=== PATIENT | female | born 1955 | race African-American/Black ===

== ENCOUNTER 2019-08-04 16:36 | Emergency (ER) | payer OTHER ==
[~2019-08-04] VITALS: Ht 152.4 cm; Wt 65.0 kg
[2019-08-04] MEDS ORDERED: SODIUM CHLORIDE FLUSH 10ML SYR IVF ONE (17:00)
[2019-08-04] MEDS ORDERED: ONDANSETRON 2MG/ML, 2ML IVPush ONE (17:00)
[2019-08-04] MEDS ORDERED: FENTANYL PF 100 MCG/2ML IV ONE (17:00)
[2019-08-04] MEDS ORDERED: DIPHENHYDRAMINE 50 MG/ML, 1ML IVPush ONE (17:00)
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
[2019-08-04] MEDS ORDERED: DIPHENHYDRAMINE 50 MG/ML, 1ML ONE (17:18)
[2019-08-04] MEDS ORDERED: ONDANSETRON 2MG/ML, 2ML ONE (17:18)
[2019-08-04] MEDS ORDERED: FENTANYL PF 100 MCG/2ML ONE (17:19)
[2019-08-04 18:30] LABS: BASOPHILS # (AUTO) 0.02 x10^3/uL (0-0.1); BASOPHILS % (AUTO) 0 % (0-1); EOSINOPHILS # (AUTO) 0.18 x10^3/uL (0-0.4); EOSINOPHILS % (AUTO) 3 % (1-7); LYMPHOCYTES # (AUTO) 1.86 x10^3/uL (1-3.4); LYMPHOCYTES % (AUTO) 27 % (22-44); MD NO; MEAN CORPUSCULAR HEMOGLOBIN 30.4 pg (27.0-34.8); MEAN CORPUSCULAR HGB CONC 33.8 g/dL (32.4-35.8); MEAN CORPUSCULAR VOLUME 90.1 fL (80-100); MEAN PLATELET VOLUME 7.9 fL (7.4-10.4); MONOCYTES # (AUTO) 0.37 x10^3/uL (0.2-0.8); MONOCYTES % (AUTO) 5 % (2-9); NEUTROPHILS # (AUTO) 4.35 x10^3/uL (1.8-6.8); NEUTROPHILS % (AUTO) 64 % (42-75); PLATELET COUNT 326 x10^3/uL (130-400); RED BLOOD COUNT 3.82 x10^6/uL (3.82-5.3); RED CELL DISTRIBUTION WIDTH 13.6 % (9.6-15.2)
--- NOTE | 2019-08-04 18:30 | NUR ---
DELAY IN MEDICATING PT D/T PT BEING VERY DIFFICULT IV START. PT MEDICATED ORDERED FOR PAIN AND PRE-MEDICATED FOR IV DYE. REM[facility] JIMÉNEZ AND MATTHEW SPRINGER DISCUSSED IN LENGTH WITH PT ABOUT REACTION TO DYE WHICH PT REPORTED WAS ITCHING AND ATTEMPTED WITH PRE-MEDICATION OF BENADRYL. PT VERBALIZED UNDERSTANDING AND AGREED. PT AO X 4. PT MOVING ALL EXTREMITIES W/O DIFFICULTY. PT REPEATEDLY ASKING FOR DILAUDID. PT EDUCATED ON FENTANYL AND PT AGREED TO TAKE IT. PT ON CONT BP AND SPO2 MONITORS. CALL LIGHT WITHIN REACH. WILL CONT TO MONITOR PT.
[2019-08-04 18:38] LABS: ALBUMIN 3.5 g/dL (3.4-5.0); ANION GAP 4 mmol/L (5-15); CALCIUM 9.4 mg/dL (8.5-10.1); CHLORIDE 103 mmol/L (98-107); CREATININE 0.98 mg/dL (0.55-1.02)
--- NOTE | 2019-08-04 19:03 | NUR ---
PT TO IMAGING VIA [employer] AT THIS TIME.
--- NOTE | 2019-08-04 19:34 | NUR ---
PT CURRENTLY DOZING ON GURCANDICE. NO ACUTE DISTRESS NOTED AT THIS TIME. PT AWAKENS EASILY TO NAME BEING CALL. PT AO X 4. SKIN WARM AND DRY. RESP EVEN AND UNLABORED. PT ON CONT BP, CARDIAC AND O2 MONITORS. CALL LIGHT WITHIN REACH. WILL CONT TO MONITOR PT.
--- NOTE | 2019-08-04 20:30 | NUR ---
PT STEADY UPON AMBULATION TO DC DESK. PT REPORTS PAIN IS NOW TOLERABLE AT A 4/10 FROM 12/06. PT AO X 4. SKIN WARM AND DRY. RESP EVEN AND UNLABORED. PT AWARE WE ARE WAITING FOR DC PAPERWORK. PT REQUESTED AND WAS PROVIDED WITH A TAXI VOUCHER.
[2019-08-04 20:57] VITALS: BP 154/79
[2019-08-04] MEDS ORDERED: LORazepam 2 MG/ML, 1ML IVPush ONE (21:00)
[2019-08-05] MEDS ORDERED: OMNIPAQUE 350 MG/ML, 100ML BOTTLE ONE (00:17)
== END 2019-08-04 20:56 | disposition home or self-care (01) ==
LOC: ED 17:59
DX: S39.012A Strain of muscle, fascia and tendon of lower back, initial encounter (principal); S33.5XXA Sprain of ligaments of lumbar spine, initial encounter; S16.1XXA Strain of muscle, fascia and tendon at neck level, initial encounter; S20.219A Contusion of unspecified front wall of thorax, initial encounter; S40.012A Contusion of left shoulder, initial encounter; S70.02XA Contusion of left hip, initial encounter; R07.9 Chest pain, unspecified; S09.90XA Unspecified injury of head, initial encounter; V89.2XXA Person injured in unspecified motor-vehicle accident, traffic, initial encounter; Y93.89 Activity, other specified; Y92.410 Unspecified street and highway as the place of occurrence of the external cause; Y99.8 Other external cause status
CPT/HCPCS: 36415; 36556; 70450; 71260; 72125; 72128; 72131; 73502; 74177; 80048; 82040; 85025; 96374; 96375; 99285; J1200; J2405; J3010; Q9967